=== PATIENT | male | born 1965 | race Caucasian/White ===

== ENCOUNTER → 2021-05-12 | Outpatient (CLI) | payer BC ==
--- NOTE | 2021-05-12 10:19 | US ---
EXAMINATION TYPE: US abdomen limited DATE OF EXAM: 05/12/2021 COMPARISON: NONE CLINICAL HISTORY: R10.11 Right Upper Quardrant Pain. RUQ pain x 10 months EXAM MEASUREMENTS: Liver Length: 17.5 cm Gallbladder Wall: 0.2 cm CBD: 0.4 cm Right Kidney: 11.1 x 5.7 x 5.8 cm Pancreas: obscured by overlying midline bowel gas Liver: measures in upper limits of normal, attenuating, heterogeneous Gallbladder: wnl Evidence for sonographic Solorio's sign: no CBD: visualized portions wnl, limited by overlying bowel gas Right Kidney: wnl IMPRESSION: No distinct abnormality appreciated.
== END | disposition home or self-care (01) ==
LOC: RADUSWWP 09:39
PROVIDERS: ATTEND Family Medicine
DX: R10.11 Right upper quadrant pain (principal)
CPT/HCPCS: 76705